=== PATIENT | male | born 1950 | race Caucasian/White ===

== ENCOUNTER → 2018-10-21 | Outpatient (CLI) | payer MEDICARE, SELFPAY ==
--- NOTE | 2018-10-21 13:09 | VDLE_ITS ---
Reason For Study: R/O DVT RIGHT GSV is normal. CFV is compressible, spontaneous, phasic, competent and demonstrates normal augmentation. FV is compressible, spontaneous, phasic, competent and demonstrates normal augmentation. POP V is compressible, spontaneous, phasic, competent and demonstrates normal augmentation. T/P Trunk is compressible. PTV is compressible. RT PerV is compressible. Procedure Exam performed in department. A preliminary report was called and/or faxed to [facility]. Interpretation Summary Deep veins of the right lower extremity are patent and compressible segmentally. There is no evidence of right lower extremity deep vein thrombosis. Valvular competence appears intact within the proximal deep venous system on the right . The right greater saphenous vein appears patent and compressible segmentally. Ordering Physician: JOHN GAMBINO Referring Physician: JOHN GAMBINO Performed By: Abeba Ware, LANRE, RVT
== END | disposition home or self-care (01) ==
DX: R60.0 Localized edema (principal)
CPT/HCPCS: 93970